=== PATIENT | male | born 1965 | race Caucasian/White ===

== ENCOUNTER 2023-09-18 20:38 | Inpatient (IN) | payer SELFPAY ==
[~2023-09-18] VITALS: Ht 172.7 cm; Wt 70.0 kg
[2023-09-18 20:55] VITALS: RESP 48
[2023-09-18] MEDS ORDERED: VANCOMYCIN 1G PREMIX 200 ML IV ONE (21:00)
[2023-09-18] MEDS ORDERED: CEFTRIAXONE 1GM PREMIX 50 ML IV ONE (21:00)
[2023-09-18 21:16] LABS: BG BASE EXCESS -1.9 mmol/L (-2.0-2.0); BG CARBOXYHEMOGLOBIN 0.1 % (0.5-1.5); BG DEOXYHEMOGLOBIN 1.3 % (0.0-5.0); BG FRACTION INSPIRED OXYGEN 100; BG HCO3 ACT 17.9 mmol/L (22.0-26.0); BG OXYGEN SATURATION 98.7 % (92.0-98.5); BG OXYHEMOGLOBIN 98.6 % (94.0-97.0); BG PCO2 20.9 mmHg (35.0-45.0); BG SAMPLE SITE LEFT BRACHIAL; BG TOTAL HEMOGLOBIN 15.8 g/dL (12.0-18.0); BG VENT MODE MASK - BIPAP
[2023-09-18 21:29] LABS: HEMATOCRIT. 45.6 % (42.0-52.0); HEMOGLOBIN. 15.2 g/dL (14.0-18.0); MEAN CORPUSCULAR HEMOGLOBIN 29.2 pg (28.0-32.0); MEAN CORPUSCULAR HGB CONC 33.3 g/dL (31.0-37.0); MEAN CORPUSCULAR VOLUME 87.8 fL (80.0-94.0); MEAN PLATELET VOLUME 8.6 fl (7.4-10.4); PLATELET 95 x1000/uL (130-400); RED BLOOD CELL COUNT 5.19 mill/uL (4.7-6.1); RED CELL DISTRIBUTION WIDTH 13.6 % (11.6-14.6)
[2023-09-18 21:30] LABS: DIFFERENTIAL COMMENT 1
[2023-09-18 21:32] LABS: WHITE BLOOD COUNT 1.3 x1000/uL (4.5-11.0)
[2023-09-18 21:36] LABS: ALANINE AMINOTRANSFERASE 46 IU/L (10-49); ALBUMIN 3.4 g/dL (3.2-4.8); ASPARTATE AMINOTRANSFERASE 164 IU/L (<34); BILIRUBIN TOTAL 2.7 mg/dL (0.1-1.0); CALCIUM 7.7 mg/dL (8.7-10.4); CARBON DIOXIDE 23 mEq/L (21-32); CHLORIDE 90 mEq/L (98-107); CREATININE 2.1 mg/dL (0.6-1.3); D-DIMER 10.76 mg/L FEU (<0.50); ETHANOL BLOOD < 10 mg/dL (<10); GLUCOSE 159 mg/dL (70-105); INR 1.2; POTASSIUM 3.3 mEq/L (3.5-5.1); PROTEIN TOTAL 6.3 g/dL (6.0-8.3); PROTHROMBIN TIME 12.9 sec (9.6-11.0); SODIUM 124 mEq/L (136-145); TROPONIN I HIGH SENSITIVITY 58 ng/L (3.0-53); UREA NITROGEN BLOOD 26 mg/dL (9-23)
[2023-09-18] MEDS ORDERED: FENTANYL 2500MCG/250ML PMX 250 ML IV ONE (22:15)
[2023-09-18] MEDS ORDERED: PROPOFOL 10MG/ML 100ML 100 ML IV SCH (22:15)
[2023-09-18 22:25] VITALS: PULSE 87; RESP 20
[2023-09-18 22:27] VITALS: TEMP 98.8; O2SAT 98
[2023-09-18] MEDS ORDERED: FENTANYL CITRATE 2,500 MCG in SODIUM CHLORIDE 0.9% 200 ML IV PRN (22:30)
[2023-09-18] MEDS ORDERED: NOREPINEPHRINE 8MG/250ML PMX 250 ML IV ONE (22:45)
[2023-09-18] MEDS ORDERED: MIDAZOLAM 100MG/100ML PMX 100 ML IV PRN (23:15)
[2023-09-18 23:33] LABS: PLATELET ESTIMATE DECREASED
[2023-09-18] MEDS ORDERED: MIDAZOLAM HCL 100 MG in SODIUM CHLORIDE 0.9% 80 ML IV PRN (23:45)
[2023-09-19] LABS: CLARITY URINE TURBID (CLEAR); COLOR URINE ORANGE (YELLOW); GLUCOSE URINE NEGATIVE (NEGATIVE); KETONES URINE NEGATIVE (NEGATIVE); LEUKOCYTE ESTERASE URINE 1+ (NEGATIVE); NITRITE URINE POSITIVE (NEGATIVE); OCCULT BLOOD URINE 3+ (NEGATIVE); PROTEIN URINE 3+ (NEGATIVE); UROBILINOGEN URINE 0.2 E.U./dL (0.2-1.0)
[2023-09-19 00:28] LABS: SQUAMOUS EPITHELIAL CELL URINE NONE SEEN /lpf (RARE/1+)
[2023-09-19 00:29] LABS: RBC URINE NONE SEEN /hpf (0-2); WBC URINE 0-2 /hpf (0-2)
[2023-09-19 00:30] LABS: BACTERIA URINE 1+
[2023-09-19] MEDS ORDERED: NOREPINEPHRINE 8MG/250ML PMX 250ML IV NR (00:30)
[2023-09-19 00:31] LABS: TROPONIN I HIGH SENSITIVITY 91 ng/L (3.0-53)
[2023-09-19] MEDS ORDERED: NOREPINEPHRINE 32 MG in DEXTROSE 5% WATER 250 ML IV PRN (01:00)
[2023-09-19 02:00] VITALS: BP 126/110; PULSE 117; RESP 20
[2023-09-19] MEDS ORDERED: EPINEPHRINE 10 MG in SODIUM CHLORIDE 0.9% 250 ML IV PRN (02:15)
[2023-09-19 04:02] LABS: *AMPHETAMINES SCREEN URINE NEGATIVE (NEGATIVE); *BARBITURATES SCREEN URINE NEGATIVE (NEGATIVE); *BENZODIAZEPINES SCREEN URINE NEGATIVE (NEGATIVE); *COCAINE SCREEN URINE NEGATIVE (NEGATIVE); ECSTASY MDMA SCREEN URINE NEGATIVE (NEGATIVE)
[2023-09-19 04:03] LABS: METHADONE URINE SCREEN NEGATIVE (NEGATIVE); PHENCYCLIDINE URINE SCREEN NEGATIVE (NEGATIVE)
[2023-09-19 14:11] LABS: OPIATES URINE SCREEN NEGATIVE (NEGATIVE)
== END 2023-09-19 02:25 | DRG 720 ==
LOC: ER 20:52 → MICUSO 22:14 → EDBD 22:14 → EDBEDREQTM 22:33 → EDBEDREQ 22:33
PROVIDERS: ADMIT Internal Medicine; ATTEND Internal Medicine
PROC: 5A12012 Performance of Cardiac Output, Single, Manual (ICD-10-PCS; 2023-09-18)
PROC: 5A1935Z Respiratory Ventilation, Less than 24 Consecutive Hours (ICD-10-PCS; 2023-09-18)
PROC: 0BH17EZ Insertion of Endotracheal Airway into Trachea, Via Natural or Artificial Opening (ICD-10-PCS; 2023-09-18)
PROC: 06HY33Z Insertion of Infusion Device into Lower Vein, Percutaneous Approach (ICD-10-PCS; 2023-09-18)
PROC: 5A09357 Assistance with Respiratory Ventilation, Less than 24 Consecutive Hours, Continuous Positive Airway Pressure (ICD-10-PCS; 2023-09-18)
PROC: 5A2204Z Restoration of Cardiac Rhythm, Single (ICD-10-PCS; principal; 2023-09-19)
PROC: 5A12012 Performance of Cardiac Output, Single, Manual (ICD-10-PCS; 2023-09-19)
DX: A41.9 Sepsis, unspecified organism (principal); I46.9 Cardiac arrest, cause unspecified; J96.00 Acute respiratory failure, unspecified whether with hypoxia or hypercapnia; J18.9 Pneumonia, unspecified organism; I49.01 Ventricular fibrillation
CPT/HCPCS: 36415; 36600; 71045; 80053; 80305; 80320; 81003; 82375; 82805; 83605; 83880; 84145; 84484; 85025; 85379; 93005; 94002; 94660; 99285; J0696; J2704; J3370; J3490; G0480